=== PATIENT | female | born 1980 | race Two or more races ===

== ENCOUNTER 2019-03-13 19:29 | Emergency (ER) | payer MEDICAID, OTHER ==
[~2019-03-13] VITALS: Ht 152.4 cm; Wt 75.6 kg
[~2019-03-13 19:29] MED LIST: IBUP-1222 PO; LEVO88TA6; OXYC-302 PO
[2019-03-13 19:34] VITALS: BP 103/70
[2019-03-13] MEDS ORDERED: DIAZEPAM 5 MG TABLET ONE (20:20)
[2019-03-13] MEDS ORDERED: HYDROcodone/APAP 5/325 TABLET ONE (20:21)
--- NOTE | 2019-03-13 20:28 | NUR ---
C-COLLAR APPLIED. PT MEDICATED PER ORDERS, UNDERSTANDS POC.
[2019-03-13] MEDS ORDERED: HYDROcodone/APAP 5/325 TABLET PO ONE (20:30)
[2019-03-13] MEDS ORDERED: DIAZEPAM 5 MG TABLET PO ONE (20:30)
--- NOTE | 2019-03-13 20:39 | NUR ---
RAD awaiting CT C-Spine Clearance to proceed
--- NOTE | 2019-03-13 22:13 | NUR ---
PT STILL C/O SOME NECK PAIN AND L ANKLE PAIN. AWAITING ALL RADIOLOGY RESULTS. AT BS. MORE BLANKETS PROVIDED TO PT, POC INO'WD WITH HER. Addendum: 03/13/19 at 2237 by HBENSON PT C/O R ANKLE PAIN
--- NOTE | 2019-03-13 23:07 | NUR ---
PT HAS BEEN RESTING QUIETLY IN [facility]. D/C INSTRUCTIONS, MEDS & F/U APPT RV'WD WITH PT, SHE VERBALIZES UNDERSTANDING. RX GIVEN X1. TO TAKE PT HOME.
--- NOTE | 2019-03-13 23:27 | NUR ---
PT AMBULATED OUT OF ED WITHOUT DIFFICULTY.
== END 2019-03-13 23:29 | disposition home or self-care (01) ==
LOC: ED 23:04
DX: S16.1XXA Strain of muscle, fascia and tendon at neck level, initial encounter (principal); S93.401A Sprain of unspecified ligament of right ankle, initial encounter; V49.49XA Driver injured in collision with other motor vehicles in traffic accident, initial encounter; Y93.89 Activity, other specified; Y92.89 Other specified places as the place of occurrence of the external cause; Y99.8 Other external cause status
CPT/HCPCS: 72072; 72125; 72190; 99284

== ENCOUNTER → 2020-09-15 | Outpatient (CLI) | payer MEDICAID, OTHER ==
[~2020-09-15] MED LIST changes: -LEVO88TA6; +LEVO88TA6 PO; +MELA5TAB14 PO; +MINO100C61 PO; +SIMV5TAB14 PO
[2020-09-15 11:32] LABS: BASOPHILS % (AUTO) 1 % (0-1); EOSINOPHILS % (AUTO) 1 % (1-7); LYMPHOCYTES % (AUTO) 28 % (22-44); MEAN CORPUSCULAR HEMOGLOBIN 29.3 pg (27.0-34.8); MEAN CORPUSCULAR HGB CONC 35.2 g/dL (32.4-35.8); MEAN PLATELET VOLUME 8.9 fL (7.4-10.4); MONOCYTES % (AUTO) 8 % (2-9); NEUTROPHILS % (AUTO) 63 % (42-75); PLATELET COUNT 310 x10^3/uL (130-400); RED BLOOD COUNT 4.48 x10^6/uL (3.82-5.3); RED CELL DISTRIBUTION WIDTH 15.8 % (9.6-15.2)
[2020-09-15 11:36] LABS: ANION GAP 6 mmol/L (5-15); CALCIUM 8.9 mg/dL (8.5-10.1); CHLORIDE 109 mmol/L (98-107)
[2020-09-15 11:37] LABS: MD NO
== END | disposition home or self-care (01) ==
LOC: STAR 10:10
PROVIDERS: ATTEND Obstetrics & Gynecology
DX: Z01.812 Encounter for preprocedural laboratory examination (principal); Z20.828 Contact with and (suspected) exposure to other viral communicable diseases
CPT/HCPCS: 80048; 84702; 85025; 87635

== ENCOUNTER 2020-09-21 12:26 | Day surgery (SDC) | payer MEDICAID, OTHER ==
[~2020-09-21] VITALS: Ht 152.4 cm; Wt 73.5 kg
[2020-09-21 13:06] VITALS: BP 95/67
[2020-09-21] MEDS ORDERED: CHLORHEXIDINE 15 ML UDC ONE (13:11)
[2020-09-21 13:15] LABS: HCG UR SG 1.014 (1.003-1.030)
[2020-09-21] MEDS ORDERED: LACTATED RINGERS 1,000 ML IV SCH (13:30)
[2020-09-21] MEDS ORDERED: CHLORHEXIDINE 15 ML UDC MM ONE (13:30)
[2020-09-21] MEDS ORDERED: EPINEPHRINE 1 MG/ML, 1ML ONE (13:50)
[2020-09-21] MEDS ORDERED: BUPIVACAINE/PF 0.25% ONE (13:50)
[2020-09-21] MEDS ORDERED: FENTANYL PF 100 MCG/2ML ONE ×2 (13:58→15:45)
[2020-09-21] MEDS ORDERED: MIDAZOLAM 1 MG/ML, 2ML ONE (13:58)
[2020-09-21] MEDS ORDERED: ACETAMINOPHEN 325 MG TABLET PO PRN (14:00)
[2020-09-21] MEDS ORDERED: MEPERIDINE/PF 25MG/0.5ML IVPush PRN (14:00)
[2020-09-21] MEDS ORDERED: LABETALOL 5MG/ML, 20ML IV PRN (14:00)
[2020-09-21] MEDS ORDERED: DIPHENHYDRAMINE 50 MG/ML, 1ML IVPush PRN (14:00)
[2020-09-21] MEDS ORDERED: ONDANSETRON 2MG/ML, 2ML IVPush PRN (14:00)
[2020-09-21] MEDS ORDERED: DIAZEPAM 5 MG/ML, 2ML IVPush PRN (14:00)
[2020-09-21] MEDS ORDERED: HALOPERIDOL 5 MG/ML IV PRN (14:00)
[2020-09-21] MEDS ORDERED: METOPROLOL 1 MG/ML, 5ML IV PRN (14:00)
[2020-09-21] MEDS ORDERED: hydrALAzine 20 MG/ML, 1ML IV PRN (14:00)
[2020-09-21] MEDS ORDERED: METOCLOPRAMIDE 5 MG/ML, 2ML IVPush PRN (14:00)
[2020-09-21] MEDS ORDERED: HYDROmorphone 1 MG/ML, 1ML INJ IVPush PRN (14:00)
[2020-09-21] MEDS ORDERED: PROMETHAZINE 12.5 MG SUPP PR PRN (14:00)
[2020-09-21] MEDS ORDERED: EPHEDRINE 50 MG/ML, 1ML IVPush PRN (14:00)
[2020-09-21] MEDS ORDERED: ONDANSETRON 2MG/ML, 2ML ONE ×2 (14:29→16:11)
[2020-09-21] MEDS ORDERED: ROCURONIUM 10 MG/ML,10ML ONE (14:29)
[2020-09-21] MEDS ORDERED: DEXAMETHASONE 4 MG/ML, 1ML ONE (14:29)
[2020-09-21] MEDS ORDERED: GLYCOPYRROLATE 0.2MG/1ML, 5ML ONE (14:29)
[2020-09-21] MEDS ORDERED: PHENYLEPHRINE 10 MG/ML ONE (14:29)
[2020-09-21] MEDS ORDERED: SUCCINYLCHOLINE 20 MG/ML, 10ML ONE (14:29)
[2020-09-21] MEDS ORDERED: KETOROLAC 30 MG/1 ML ONE (14:29)
[2020-09-21] MEDS ORDERED: PROPOFOL 10 MG/ML, 50ML ONE (14:29)
[2020-09-21] MEDS ORDERED: NEOSTIGMINE 1 MG/ML, 10ML ONE (14:29)
[2020-09-21] MEDS ORDERED: BUPIVACAINE/PF-EPI 0.25% 1:200K INFIL ONE (14:50)
[2020-09-21] MEDS ORDERED: OXYcodone 5 MG/5 ML ORAL.SOL UDC ONE (15:45)
[2020-09-21] MEDS: OXYcodone 5 MG/5 ML ORAL.SOL UDC PO PRN ×2 (15:53→16:30)
[2020-09-21] MEDS: FENTANYL PF 100 MCG/2ML IV PRN ×2 (16:00→16:30)
== END 2020-09-21 18:00 | disposition home or self-care (01) ==
LOC: OUT 12:26
PROVIDERS: ATTEND Obstetrics & Gynecology
DX: Z30.2 Encounter for sterilization (principal); E03.9 Hypothyroidism, unspecified; E78.5 Hyperlipidemia, unspecified; E66.3 Overweight; Z68.31 Body mass index [BMI] 31.0-31.9, adult; Z79.899 Other long term (current) drug therapy; Z88.5 Allergy status to narcotic agent
CPT/HCPCS: 58670; 81025; 88302; J0171; J0330; J1100; J1885; J2250; J2370; J2405; J2704; J2710; J3010; J7120